=== PATIENT | female | born 1970 | race Caucasian/White ===

== ENCOUNTER 2016-05-07 13:04 | Emergency (ER) | payer OTHER ==
[2016-05-07] MEDS ORDERED: CARVEDILOL3.125 M1 PO (13:14)
[2016-05-07] MEDS ORDERED: LISINOPRIL2.5 M1 PO (13:15)
[2016-05-07] MEDS ORDERED: ZYRTEC10 M6 PO (13:15)
--- NOTE | 2016-05-07 13:23 | ED SKIN/ALLERGY COMPLAINT ---
History of Present Illness General Chief Complaint: Allergy Symptoms Stated Complaint: BIBA ASTHMA Source: patient Exam Limitations: no limitations Vital Signs & Intake/Output Vital Signs & Intake/Output Vital Signs Date Time Temp Pulse Resp B/P Pulse O2 O2 Flow FiO2 Ox Delivery Rate 05/07 1421 97.0 54 20 102/75 98 Room Air 05/07 1333 100 Room Air 05/07 1308 97.0 55 20 139/66 100 Room Air Allergies Coded Allergies: Penicillins (Intermediate, HIVES 05/07/16) codeine (Intermediate, HIVES 05/07/16) melon (Intermediate, HIVES 05/07/16) oseltamivir (From TAMIFLU) (Intermediate, HIVES 05/07/16) Reconcile Medications Carvedilol 3.125 MG TABLET 1 TAB PO BID HTN (Reported) Cetirizine HCl (Zyrtec) 10 MG CAPSULE 1 TAB PO DAILY ALLERGIES (Reported) Lisinopril 2.5 MG TABLET 1 TAB PO DAILY HTN (Reported) Triage Note: PT BIBA FROM HOME S/P ALLERGIC REACTION. STATES SHE HAS A HISTORY OF ALLERGIES TO MELONS. STATES THAT SHE HAD A FISH LAST NIGHT THAT CONTAINED MAGDALENA IN IT. STATES REACTION STARTED THIS AM. STARTED TO HAVE ITCHING, AND RASH TO FACE AND CHEST. WAS HAVING SOME DIFFICULTY BREATHING INITIALLY. EMS ADMINISTERED BENADRYL IV. PT NOTED TO BE SINUS CASTILLO ON MONITOR WITH RATE IN 50'S. STATES SHE FEELS MUCH BETTER AT THIS TIME. RA SAT 98% AT THIS TIME. LUNGS APPEAR CLEAR. 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 Triage Nurses Notes Reviewed? yes Onset: Abrupt Duration: hour(s): (12) Timing: recent history Severity: moderate, severe Location: generalized No Modifying Factors: none : No Patient currently breastfeeds: No HPI: 45-year-old female comes into emergency room for further evaluation after developing a rash on her face and chest and upper arms, difficulty breathing, and sweaty. Denies any tongue swelling. Symptoms were sudden onset. Patient denies any new medications that she is aware of, skin care products, foods. The only thing the patient can think differently is that she had Midoris last night around 6 PM and she does have a history of allergy to melon. Past History Travel History Traveled to [place] past 21 day No Medical History Any Pertinent Medical History? see below for history Respiratory: asthma Surgical History Surgical History: non-contributory Psychosocial History What is your primary language [place]ican Tobacco Use: Never used Family History Hx Contributory? No Review of Systems Review of Systems Constitutional: Reports: no symptoms. EENTM: Reports: no symptoms. Respiratory: Reports: see HPI. Cardiovascular: Reports: no symptoms. GI: Reports: no symptoms. Genitourinary: Reports: no symptoms. Musculoskeletal: Reports: no symptoms. Skin: Reports: no symptoms. Neurological/Psychological: Reports: no symptoms. Hematologic/Endocrine: Reports: no symptoms. Immunologic/Allergic: Reports: no symptoms. All Other Systems: Reviewed and Negative Physical Exam Physical Exam General Appearance: well developed/nourished, mild distress Head: atraumatic Eyes: Bilateral: normal appearance. Ears, Nose, Throat: normal ENT inspection, hearing grossly normal Neck: normal inspection Respiratory: no respiratory distress Cardiovascular: regular rate/rhythm Gastrointestinal: soft, non-tender Back: normal inspection Extremities: normal inspection, normal range of motion, no edema Neurologic/Psych: awake, alert, oriented x 3, normal mood/affect Lymphatic: no anterior cervical colt Progress Differential Diagnosis: allergic reaction, anaphylaxis, angioedema, asthma, contact dermatitis, drug reaction Plan of Care: Current Medications Sig/Elvia Start time Last Medication Dose Stop Time Status Admin Methylprednisolone 125 MG ONCE ONE 05/07 1330 UNVr (Solu Medrol) 05/07 1331 Departure Departure Disposition: HOME OR SELF CARE Condition: Stable Clinical Impression Primary Impression: Allergic reaction Referrals: KENNEDY MÉNDEZ MD (PCP/Family) Additional Instructions: Return immediately if any tongue swelling, shortness of breath, or any other concerns worsening symptoms. Please go over all results of today's visit with your primary care doctor. Contact your primary care doctor to let them know you were here in the emergency room. There may be nonspecific findings which may not be related to your visit today here in the emergency room but may require further evaluation and chronic monitoring by your primary care doctor. If you had a laceration today the chance of foreign body always remains. You should follow-up with your primary care doctor for recheck in 3-5 days for a wound check. If you had an x-ray done there is a chance that a fracture could have been missed on initial read and you should follow-up with your primary care doctor for repeat x-rays if symptoms persist. If your blood pressure was elevated here in the emergency room please have rechecked by her primary care doctor within the next 48 hours by your primary care doctor. If you were prescribed a narcotic here in the emergency room or any type of controlled substances you're not allowed to drive while taking this medication or operate any type of heavy machinery. Narcotics can make you feel lightheaded dizziness nausea and can cause constipation. You may need to meat pickler a stool softener. Thank you for choosing [facility] emergency room. Please return to the emergency room immediately if you have any other concerns worsening of symptoms. Departure Forms: Customer Survey General Discharge Information Comments 05/07/2016 3:08:44 PM Patient observed for 2 hours. Patient was told that we typically observedfor a minimum 4 hours for allergic reaction. Upon reevaluating the patient she is completely asymptomatic. Patient wants to go home. Patient does not want to wait the full 4 hours. Patient is with her and will be observed at home. Return if any other concerns worsening symptoms. Patient understands and agrees with plan of care.
[2016-05-07 14:21] VITALS: BP 102/75
== END 2016-05-07 15:09 ==
LOC: ERH 13:04
DX: T78.40XA Allergy, unspecified, initial encounter (principal)
CPT/HCPCS: 96374; J2930